=== PATIENT | male | born 1970 | race Caucasian/White ===

== ENCOUNTER 2021-04-23 04:38 | Day surgery (SDC) | payer OTHER ==
[2021-04-22 08:40] VITALS: BMI 33.0
[2021-04-23 08:41] VITALS: TEMP 97.1
[2021-04-23 09:27] VITALS: BP 137/89; PULSE 68
== END 2021-04-23 09:44 | disposition home or self-care (01) ==
LOC: JASU-ENDO 04:38
PROVIDERS: ATTEND Internal Medicine Gastroenterology
PROC: 0DBL8ZX Excision of Transverse Colon, Via Natural or Artificial Opening Endoscopic, Diagnostic (ICD-10-PCS; 2021-04-23)
PROC: 0DB98ZX Excision of Duodenum, Via Natural or Artificial Opening Endoscopic, Diagnostic (ICD-10-PCS; 2021-04-23)
PROC: 0DB78ZX Excision of Stomach, Pylorus, Via Natural or Artificial Opening Endoscopic, Diagnostic (ICD-10-PCS; 2021-04-23)
PROC: 0DB48ZX Excision of Esophagogastric Junction, Via Natural or Artificial Opening Endoscopic, Diagnostic (ICD-10-PCS; 2021-04-23)
PROC: 0DBN8ZX Excision of Sigmoid Colon, Via Natural or Artificial Opening Endoscopic, Diagnostic (ICD-10-PCS; principal; 2021-04-23 08:00)
DX: Z12.11 Encounter for screening for malignant neoplasm of colon (principal); K22.10 Ulcer of esophagus without bleeding; K25.3 Acute gastric ulcer without hemorrhage or perforation; K21.00 Gastro-esophageal reflux disease with esophagitis, without bleeding; K44.9 Diaphragmatic hernia without obstruction or gangrene; D13.0 Benign neoplasm of esophagus; D12.7 Benign neoplasm of rectosigmoid junction; D12.3 Benign neoplasm of transverse colon; K64.8 Other hemorrhoids; K92.1 Melena; Z83.71 Family history of colonic polyps; Z80.0 Family history of malignant neoplasm of digestive organs

== ENCOUNTER 2021-05-12 17:16 | Emergency (ER) | payer OTHER ==
[2021-05-12 17:51] VITALS: BP 147/94; PULSE 89; TEMP 99; BMI 33.3
[2021-05-12] MEDS ORDERED: SODIUM CHLORIDE 0.9% 500 ML INFUS.BAG IV ONE (17:57)
[2021-05-12] MEDS ORDERED: ACETAMINOPHEN 1000 MG/100 ML VIAL (NON FORMULARY) IVPB ONE (17:57)
[2021-05-12] MEDS ORDERED: ACETAMINOPHEN INJECTION 100 ML IVPB ONE (18:35)
[2021-05-12 18:39] LABS: BASO % 2.4 % (0-2.0); HEMATOCRIT 40.1 % (35.4-49); HEMOGLOBIN 13.6 GM/dl (11.7-16.9); LYMPH % 27.1 % (8-40); MCH 29.8 pg (25.7-33.7); MCHC 33.9 g/dl (32.0-35.9); MEAN CELL VOLUME 87.8 fl (80-96); MEAN PLT VOLUME 9.1 fl (7.5-11.1); MONO % 9.7 % (3.8-10.2); NEUT % 57.8 % (42.8-82.8); PLATELET COUNT 184 10^3/uL (134-434); RBC 4.57 M/mm3 (4.00-5.60); RDW 14.2 % (11.9-15.9); WHITE BLOOD COUNT 5.2 K/mm3 (4.0-10.8)
[2021-05-12 18:49] LABS: ALBUMIN 3.9 g/dl (3.4-5.0); ALK PHOS 58 U/L (45-117); ANION GAP 10 MMOL/L (8-16); CALCIUM 9.7 mg/dl (8.5-10); CHLORIDE 103 mmol/L (98-107); CO2 30 mmol/L (21-32); CREATININE 1.3 mg/dl (0.55-1.3); GLUCOSE,RANDOM 83 mg/dl (74-106); SGOT/AST 27 U/L (15-37); SGPT/ALT 43 U/L (13-61); SODIUM 143 mmol/L (136-145); TOT PROT 6.3 g/dl (6.4-8.2)
[2021-05-12 19:53] LABS: VENOUS BASE EXCESS 1.1 mmol/L (-2-2); VENOUS O2 SATURATION 67.9 % (70-80); VENOUS PH 7.339 (7.310-7.410)
[2021-05-12] MEDS ORDERED: KETOROLAC TROMETHAMINE 15 MG/ML VIAL ONE (20:38)
== END 2021-05-12 21:30 | disposition home or self-care (01) ==
LOC: FER 17:16
PROC: 3E0333Z Introduction of Anti-inflammatory into Peripheral Vein, Percutaneous Approach (ICD-10-PCS; principal; 2021-05-12)
PROC: 3E0333Z Introduction of Anti-inflammatory into Peripheral Vein, Percutaneous Approach (ICD-10-PCS; 2021-05-12)
DX: M79.10 Myalgia, unspecified site (principal)
CPT/HCPCS: 36415; 71046-TC-FY; 80053; 81003; 82550; 82553; 82803; 83880; 84484; 85025; 87086; 99284-25; C9803; J0131; U0003; U0005

== ENCOUNTER → 2021-07-25 | Day surgery (SDC) | payer OTHER ==
[2021-07-25 08:17] VITALS: BMI 33.9
[2021-07-25 09:08] VITALS: TEMP 98.4
[2021-07-25 09:27] VITALS: BP 111/77; PULSE 73
[2021-07-25 11:45] LABS: BASO % 0.3 % (0-2.0); EOS % 1.7 % (0-4.5); HEMATOCRIT 40.6 % (35.4-49); HEMOGLOBIN 14.1 GM/dL (11.7-16.9); LYMPH % 19.6 % (8-40); MCH 30.2 pg (25.7-33.7); MCHC 34.8 g/dl (32.0-35.9); MEAN CELL VOLUME 86.8 fl (80-96); MEAN PLT VOLUME 9.2 fl (7.5-11.1); MONO % 7.5 % (3.8-10.2); NEUT % 70.9 % (42.8-82.8); PLATELET COUNT 180 10^3/uL (134-434); RBC 4.68 M/mm3 (4.00-5.60); RDW 14.8 % (11.9-15.9); WHITE BLOOD COUNT 5.4 K/mm3 (4.0-10.0)
[2021-07-25 12:02] LABS: CHLORIDE 109 mmol/L (98-107); SODIUM 143 mmol/L (136-145)
[2021-07-25 12:04] LABS: ALBUMIN 3.7 g/dl (3.4-5.0); ANION GAP 5 MMOL/L (8-16); BLOOD UREA NITROGEN 18.2 mg/dL (7-18); CALCIUM 9.3 mg/dL (8.5-10.1); CO2 29 mmol/L (21-32); GLUCOSE,RANDOM 102 mg/dL (74-106)
[2021-07-25 12:08] LABS: BILIRUBIN,TOTAL 0.8 mg/dL (0.2-1); CREATININE 1.6 mg/dL (0.55-1.3); SGOT/AST 29 U/L (15-37); SGPT/ALT 42 U/L (13-61); TOT PROT 6.6 g/dl (6.4-8.2)
[2021-07-25 12:10] LABS: ALK PHOS 64 U/L (45-117)
== END | disposition home or self-care (01) ==
LOC: JASU-ENDO 04:41
PROVIDERS: ATTEND Internal Medicine Gastroenterology
PROC: 0DB78ZX Excision of Stomach, Pylorus, Via Natural or Artificial Opening Endoscopic, Diagnostic (ICD-10-PCS; 2021-07-25)
PROC: 0DB38ZX Excision of Lower Esophagus, Via Natural or Artificial Opening Endoscopic, Diagnostic (ICD-10-PCS; principal; 2021-07-25 09:00)
DX: D13.1 Benign neoplasm of stomach (principal); K25.7 Chronic gastric ulcer without hemorrhage or perforation; K21.00 Gastro-esophageal reflux disease with esophagitis, without bleeding; K29.70 Gastritis, unspecified, without bleeding
CPT/HCPCS: 36415; 80053; 82378; 82941; 85025; 86140

== ENCOUNTER 2021-09-29 00:52 | Emergency (ER) | payer OTHER ==
[2021-09-29 01:01] VITALS: BP 104/73; PULSE 100; TEMP 97.5; BMI 32.4
[2021-09-29] MEDS ORDERED: LIDOCAINE 5% TOPICAL PATCH ONE (01:44)
[2021-09-29] MEDS ORDERED: LIDOCAINE 5% TOPICAL PATCH TP ONE (01:44)
[2021-09-29] MEDS ORDERED: LIDOCAINE PATCH REMOVAL MC SCH (22:00)
== END 2021-09-29 01:51 | disposition home or self-care (01) ==
LOC: FER 00:52
DX: M62.838 Other muscle spasm (principal)
CPT/HCPCS: 72050-TC-FY; 99283-25